=== PATIENT | female | born 1980 | race Caucasian/White ===

== ENCOUNTER 2024-05-16 09:28 | Outpatient (CLI) | payer BC, MEDICAID, SELFPAY ==
--- NOTE | 2024-05-16 09:33 | MM_ITS ---
WS: [id number] BILATERAL 3D TOMOSYNTHESIS DIGITAL DIAGNOSTIC MAMMOGRAPHY WITH CAD CLINICAL INFORMATION: RT BREAST LUMP HISTORY: RIGHT breast lump COMPARISON: Baseline TECHNIQUE: Bilateral CC, MLO, and ML views. FINDINGS: Scattered fibroglandular densities bilaterally. Palpable marker RIGHT breast. No underlying parenchym al abnormalities. Ultrasound of this area is pending. Unremarkable LEFT breast. ULTRASOUND BREAST RIGHT TECHNIQUE: Ultrasound right breast focused area of concern. CLINICAL INFORMATION: RT BREAST LUMP FINDINGS: Ultrasound RIGHT breast area of concern. Ultrasound RIGHT breast 9 o'clock position 5 cm from the nip ple and 3 o'clock position 5 cm from the nipple. Normal underlying parenchymal tissue. No cystic or s olid lesions. No suspicious lesions to target for biopsy. MM/[place] [id number] IMPRESSION: DENSITY: There are scattered areas of fibroglandular density. BI-RADS: 2 - Benign. FOLLOW UP: 1 Year Follow-up Recommend return to annual screening mammography.
== END 2024-05-16 09:29 | disposition home or self-care (01) ==
PROVIDERS: Visit Provider Family Medicine
DX: N63.11 Unspecified lump in the right breast, upper outer quadrant (principal); R92.323 Mammographic fibroglandular density, bilateral breasts
CPT/HCPCS: 76642; 77062; G0279

== ENCOUNTER 2024-07-19 14:32 | Emergency (ER) | payer BC, MEDICAID, SELFPAY ==
--- NOTE | 2024-07-19 14:34 | XR_ITS ---
WS: [id number] Portable AP upright chest, 07/19/2024 Clinical Data: sob Comparison: None. Findings: No masses or effusions are seen. There is a nodule or possible artifact overlying the left seventh rib peripherally. The heart is normal. The pulmonary vascularity is not increased. No pneumon ia or pneumothorax is seen. XR/XR chest 1V portable [id number] Impression: Questionable left lung nodule.
[2024-07-19 15:19] VITALS: BP 151/106; PULSE 90; RESP 21; TEMP 36.8; O2SAT 98; BMI 30.7
--- NOTE | 2024-07-19 16:11 | W.ED.URI ---
HPI - URI/Sore Throat General: Chief Complaint: Upper Respiratory Infection Stated Complaint: SOB, cough, sore throat Time Seen by Provider: 07/19/24 15:47 Source: patient Mode of arrival: ambulatory Limitations: no limitations History of Present Illness: Patient is a 43-year-old female who presents to the ED today stating I think I have bronchitis . Patient is complaining of a nonproductive cough that is keeping her up at night, sore throat, congestion. She has had sick contacts. She has not been running fevers. No significant shortness of breath. Her main complaint is the bothersome cough. MD elicited complaint: cough and sore throat Onset (ago): day(s) Consistency: constant Severity: moderate Description of mucous: clear Able to tolerate fluids by mouth: Yes Exacerbating factors: nothing Relieving factors: nothing Context: sick contacts Associated symptoms: Deny chills, chest pain, diarrhea, ear or mastoid pain, fever(s), headache(s), nasal congestion, sinus pain or vomiting Treatments prior to arrival: none Related Data Previous Rx's Medication Instructions Recorded albuterol sulfate 90 mcg/actuation 2 inh inhalation Q4H PRN shortness 07/19/24 aerosol inhaler of breath or wheezing #6.7 grams prednisone 10 mg tablet 10 mg PO DAILY 6 days #20 tabs 07/19/24 promethazine-DM 6.25 mg-15 mg/5 mL 5 ml PO Q6H PRN cough #100 mL 07/19/24 oral syrup Allergies Allergy/AdvReac Type Severity Reaction Status Date / Time codeine AdvReac ADR-Vomitin Verified 07/19/24 15:23 g hydrocodone AdvReac ADR-Vomitin Verified 07/19/24 15:23 g Review of Systems Const: Denies: fever(s), chills, body aches, fatigue or malaise Eyes: Denies: change in vision, blurry vision, photophobia, eye discomfort or eye discharge ENMT: Reports: throat pain and odynophagia; Denies: enlarged tonsils, swelling of lips/tongue, oral sores, ear or mastoid pain, ear discharge, nasal discharge, nasal congestion, post nasal drip or sinus pain Card: Denies: chest pain, palpitations, lightheadedness, syncope or pre-syncope Resp: Reports: non-productive cough, pain on inspiration and chest congestion; Denies: dyspnea, productive cough, wheezing or hemoptysis GI: Denies: vomiting or diarrhea Musc: Denies: neck pain or back pain Skin/Breast: Denies: rash Neuro: Denies: headache(s) All/Imm: Denies: facial swelling or seasonal rhinorrhea Physical Exam Const: COMMON NORMALS: no acute distress, average body habitus, patient oriented x3, no limitations, alert and well nourished GENERAL APPEARANCE: cooperative ORIENTATION/CONSCIOUSNESS: Yes awake, Yes oriented to person, Yes oriented to place and Yes oriented to time HENMT: COMMON NORMALS: normocephalic, atraumatic, hearing grossly normal bilaterally, external ears normal, EAC's normal, TM's normal bilaterally, Normal external nose present, Normal nasal mucous membranes and turbinates present and moist oral mucous membranes HEAD & SCALP: normal to inspection, normocephalic and atraumatic FACE & SINUS: normal facial exam and sinuses nontender NOSE: Normal external nose present and Normal nasal mucous membranes and turbinates present EXTERNAL EAR: Yes external ears normal EXTERNAL AUDITORY CANAL: EAC's normal TYMPANIC MEMBRANE: TM's normal bilaterally THROAT: tonsils normal, uvula midline and posterior oropharynx abnormal erythema Eye: COMMON NORMALS: Equal, round and reactive pupils present, EOMs intact bilaterally and conjunctivae normal CONJUNCTIVA: Yes conjunctivae normal PUPIL: Yes Equal, round and reactive pupils present Neck/C-Spine: COMMON NORMALS: no lymphadenopathy Resp: COMMON NORMALS: normal respiratory effort and clear to auscultation bilaterally AUSCULTATION: clear to auscultation bilaterally Cardio: COMMON NORMALS: regular rate and regular rhythm RATE: regular rate RHYTHM: regular rhythm Neuro: COMMON NORMALS: patient oriented x3 SENSORIUM/ORIENTATION: Yes alert, Yes oriented to person, Yes oriented to place and Yes oriented to time Course Vital Signs: Vital signs: Vital Signs Temperature 98.2 F 07/19/24 15:19 Pulse Rate 90 07/19/24 15:19 Respiratory Rate 21 H 07/19/24 15:19 Blood Pressure 151/106 07/19/24 15:19 Pulse Oximetry 98 07/19/24 15:19 Oxygen Delivery Me thod Room Air 07/19/24 15:19 MDM - URI/Sore Throat Medical Decision Making XR is unremarkable apart from incidental questionable left lung nodule. She was made aware of this. Her COVID/flu/RSV did come back positive for RSV. She will be treated with albuterol, prednisone, cough syrup as she was requesting something for her cough. Return ED precautions given. Differential Diagnosis Likely upper respiratory infection, croup, viral infection and bronchitis Medical Records I reviewed the patient's medical records. Lab Data I reviewed the patient's lab results. Radiology Impressions Chest X-Ray 07/19/24 14:34 Impression: Questionable left lung nodule. Laboratory Results Coronavirus (PCR) Negative (Negative) 07/19/24 15:30 Influenza A (PCR) Negative (Negative) 07/19/24 15:30 Influenza Type B (PCR) Negative (Negative) 07/19/24 15:30 RSV (PCR) Positive (Negative) 07/19/24 15:30 All radiology interpretation(s) finalized by discharge Discharge Plan Discharge Patient Disposition: Home Clinical Impression: Acute bronchiolitis due to respiratory syncytial virus Condition: Stable Prescriptions: New promethazine-DM 6.25-15 mg/5 mL syrup 5 ml PO Q6H PRN (Reason: cough) Qty: 100 0RF prednisone 10 mg tablet 10 mg PO DAILY 6 Days Qty: 20 0RF Rx Instructions: Take 5 tabs on day 1-2, 4 tabs on day 3, 3 tabs on day 4, 2 tabs on day 5, and 1 tab on day 6 albuterol sulfate 90 mcg/actuation HFA aerosol inhaler 2 inh INHALATION Q4H PRN (Reason: shortness of breath or wheezing) Qty: 6.7 0RF Discharge Orders: Discharge ED (Routine); Ordered 07/19/24 Ordered By: Delmi Sawyer Patient Instructions: Bronchiolitis (ED), RSV (Respiratory Syncytial Virus) Infection (ED), Respiratory Syncytial Virus (RSV) Stand Alone Forms: Work/School Release Coding Level of Care 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
[2024-07-19 16:17] LABS: Covid PCR NEGATIVE (Negative); Influenza A NEGATIVE (Negative); Influenza B NEGATIVE (Negative); Respiratory Syncytial Virus Ce POSITIVE (Negative)
[2024-07-19 16:55] VITALS: BP 157/101; PULSE 92; O2SAT 93
== END 2024-07-19 16:57 | disposition home or self-care (01) ==
PROVIDERS: Emergency Medicine; Emergency Provider Physician Assistant
DX: J20.5 Acute bronchitis due to respiratory syncytial virus (principal); Z11.52 Encounter for screening for COVID-19
CPT/HCPCS: 0241U; 71045; 99283

== ENCOUNTER 2024-07-21 13:29 | Emergency (ER) | payer BC, MEDICAID, SELFPAY ==
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
[2024-07-21 13:39] VITALS: BP 165/104; PULSE 92; RESP 18; TEMP 36.9; O2SAT 97
--- NOTE | 2024-07-21 13:42 | PC.PHAR ---
Addendum entered by Lauren Nicholas 07/21/24 13:44: all meds are still current therapy Original Note: patient was just discharged 2 days ago
--- NOTE | 2024-07-21 13:47 | ECG_ITS ---
[facility] Date: 2024-07-21 Pat Name: Carmita Dalal Department: Room: Gender: Female Specialty Cook: : 1980 Requested By: Steve Waterman Order Number: [id number] Camilla MD: Merle Sow M.D. Measurements Intervals [place] Rate: 91 P: 14 MD: 167 QRS: 7 QRSD: 105 T: 59 QT: 363 QTc: 448 Interpretive Statements SINUS RHYTHM NONSPECIFIC T-WAVE ABNORMALITY No previous ECG available for comparison Electronically Signed On 07-21-2024 20:26:18 MICA LAYER by Merle Sow M.D. [email or web address]
--- NOTE | 2024-07-21 13:48 | ED_ITS ---
HPI - SOB/Dyspnea General: Chief Complaint: Shortness of Breath/Dyspnea Stated Complaint: sob, cough gotten worst Time Seen by Provider: 07/21/24 13:38 Source: patient Mode of arrival: ambulatory Limitations: no limitations History of Present Illness: HPI Narrative: 43-year-old female who states she has lanier d cough congestion since evening patient was seen here on Monday and was diagnosed with RSV she states she did fill her steroids and albuterol yesterday states today her cough is worsened states she has sharp chest and back pains from coughing so much. Denies any vomiting or diarrhea. Associated symptoms: Reports chest pain; Deny abdominal pain, fever(s), nausea or vomiting Related Data Previous Rx's Medication Instructions Recorded albuterol sulfate 90 mcg/actuation 2 inh inhalation Q4H PRN shortness 07/19/24 aerosol inhaler of breath or wheezing #6.7 grams prednisone 10 mg tablet 10 mg PO DAILY 6 days #20 tabs 07/19/24 promethazine-DM 6.25 mg-15 mg/5 mL 5 ml PO Q6H PRN cough #100 mL 07/19/24 oral syrup albuterol sulfate 2.5 mg/3 mL 2.5 mg (3 mL) inhalation Q4H PRN 07/21/24 (0.083 %) solution for nebulization shortness of breath or wheezing #90 mL Allergies Allergy/AdvReac Type Severity Reaction Status Date / Time codeine AdvReac ADR-Vomitin Verified 07/21/24 13:43 g hydrocodone AdvReac ADR-Vomitin Verified 07/21/24 13:43 g Review of Systems Const: Denies: fever(s), chills, body aches or change in appetite ENMT: Denies: throat pain or dental pain Card: Reports: chest pain Resp: Reports: dyspnea and non-productive cough GI: Denies: abdominal pain, nausea, vomiting or diarrhea Musc: Denies: neck pain or back pain Skin/Breast: Denies: rash Neuro: Denies: headache(s) Physical Exam Const: COMMON NORMALS: no acute distress, patient oriented x3 and healthy appearing HENMT: COMMON NORMALS: normocephalic and atraumatic HEAD & SCALP: normocephalic and atraumatic Neck/C-Spine: COMMON NORMALS: full ROM and supple Chest: COMMONS NORMALS: normal inspection of the chest Resp: COMMON NORMALS: normal respiratory effort, No retractions, No use of accessory muscles and clear to auscultation bilaterally AUSCULTATION: clear t o auscultation bilaterally Cardio: COMMON NORMALS: regular rate, regular rhythm and No murmurs present (Cardio) RATE: regular rate RHYTHM: regular rhythm Extremity: COMMON NORMALS: normal to inspection and full ROM Neuro: COMMON NORMALS: patient oriented x3, moves all extremities and no focal motor deficits Psych: COMMON NORMALS: mental status grossly normal, Normal thought process present and cooperative THOUGHT PROCESS: Normal thought process present Skin: COMMON NORMALS: no rashes or lesions noted and no wounds GENERAL SKIN EXAM: no rashes or lesions noted Course Vital Signs: Vital signs: Vital Signs Temperature 98.5 F 07/21/24 13:39 Pulse Rate 100 07/21/24 14:04 Respiratory Rate 18 07/21/24 13:58 Blood Pressure 165/104 07/21/24 13:39 Pulse Oximetry 94 07/21/24 13:58 Oxygen Delivery Me thod Room Air 07/21/24 13:58 MDM - SOB/Dyspnea Medical Decision Making Patient presents here with RSV and give her breathing treatments she is well-ap pearing here pulse ox normal x-ray shows no pneumonia she had found her nebulizer so we will prescribe her nebs she is return if worsening she understands agrees plan Medical Records I reviewed the patient's medical records. XR interpretation done by ED provider, pending radiology final review ED provider radiology interpretation(s): cxr: no acute abnormality EKG Data EKG 1: I personally reviewed and interpreted this EKG as follows: EKG Interpretation Date: 07/21/24 EKG interpretation time: 13:52 Interpretation: nsr hr [address] or t wave abnormalities qrs 105 qtc 412 Discharge Plan Discharge Patient Disposition: Home Clinical Impression: Acute bronchiolitis due to respiratory syncytial virus Condition: Stable Prescriptions: New albuterol sulfate 2.5 mg /3 mL (0.083 %) solution for nebulization 2.5 mg INHALATION Q4H PRN (Reason: shortness of breath or wheezing) Qty: 90 0RF No Action promethazine-DM 6.25-15 mg/5 mL syrup 5 ml PO Q6H PRN (Reason: cough) Qty: 100 0RF prednisone 10 mg tablet 10 mg PO DAILY 6 Days Qty: 20 0RF Rx Instructions: Take 5 tabs on day 1-2, 4 tabs on day 3, 3 tabs on day 4, 2 tabs on day 5, and 1 tab on day 6 albuterol sulfate 90 mcg/actuation HFA aerosol inhaler 2 inh INHALATION Q4H PRN (Reason: shortness of breath or wheezing) Qty: 6.7 0RF Discharge Orders: Discharge ED (Routine); Ordered 07/21/24 Ordered By: Steve Waterman Discharge Diet: Advance as tolerated Discharge Activity: Resume usual activity Patient Instructions: RSV (Respiratory Syncytial Virus) Infection (ED) Coding Level of Care Code ED Pulp Mill Team 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
[2024-07-21] MEDS: ipratropium-albuterol 3 mL Neb INHALATION (13:55)
[2024-07-21 13:58] VITALS: PULSE 88; RESP 18; O2SAT 94
[2024-07-21 14:04] VITALS: PULSE 100
[2024-07-21] MEDS: ketorolac 30 mg/mL INJ IM (14:25)
[2024-07-21 15:22] VITALS: BP 192/106; PULSE 110; RESP 17; O2SAT 92
== END 2024-07-21 15:25 | disposition home or self-care (01) ==
PROVIDERS: Emergency Provider Emergency Medicine
DX: J21.0 Acute bronchiolitis due to respiratory syncytial virus (principal)
CPT/HCPCS: 71045; 93005; 94640; 96372; 99284; J1885

== ENCOUNTER 2024-08-19 13:54 | Outpatient (CLI) | payer BC, MEDICAID, SELFPAY ==
--- NOTE | 2024-08-19 14:00 | XR_ITS ---
WS: [id number] Lumbar spine, AP and lateral views, 08/19/2024 Clinical Data: CHRONIC BACK PAIN Comparison: None. Findings: No compression fractures or subluxation is seen. No disc space narrowing is seen. The transverse proc esses and SI joints are normal. XR/XR lumbar spine 2-3V* [id number] Impression: Negative lumbar spine.
--- NOTE | 2024-08-19 14:00 | XR_ITS ---
WS: [id number] Thoracic spine, 3 views, 08/19/2024 Clinical Data: CHRONIC BACK PAIN Comparison: None. Findings: No compression fractures are seen. The disc heights are normal. The paravertebral regions are normal. XR/XR thoracic spine 3V* [id number] Impression: Negative thoracic spine.
--- NOTE | 2024-08-19 14:00 | CT_ITS ---
WS: [id number] CT chest wo con [id number] HISTORY: LUNG NODULE TECHNIQUE: Axial imaging performed through the thorax. Coronal and sagittal reformats are submitted. All CT scans at [facility] use at least one of these dose optimization techniques: automated exposure control; mA and/or kV adjustment per patient size (includes targeted exams where dose is mat ched to clinical indication); or iterative reconstruction. CONTRAST: None DLP: 594.53 mGy.cm COMPARISON: Chest radiograph 07/21/2024 Lungs and central airway: Well-circumscribed nodule with central calcification in the lingula measure s 11 x 10 mm. No additional suspicious mass or nodule. No pneumonia. No endobronchial lesions. Pleura: Normal. No pleural effusion. Heart and pericardium: Mild cardiomegaly. Mild pericardial thickening anteriorly. Mediastinum and angel: No mediastinum or hilar adenopathy. Vessels: Normal size aortic and pulmonary artery. No coronary artery calcifications. Chest wall and lower neck: No soft tissue masses. Upper abdomen: Visualized liver demonstrates diffuse low-attenuation from hepatic steatosis. No adren al mass. Osseous structures: No destructive process. CT/CT chest wo con [id number] IMPRESSION: 1. Well-circumscribed pulmonary nodule with central calcification at the lingu la measures 11 x 10 mm. 2. No mediastinal or hilar adenopathy. Adenopathy. 3. Hepatic steatosis.
== END 2024-08-19 13:55 | disposition home or self-care (01) ==
LOC: RAD 13:56
PROVIDERS: PCP Family Medicine; Visit Provider Family Medicine
DX: R91.1 Solitary pulmonary nodule (principal); K76.0 Fatty (change of) liver, not elsewhere classified; M54.9 Dorsalgia, unspecified
CPT/HCPCS: 71250; 72072; 72100

== ENCOUNTER 2024-09-05 10:15 | Emergency (ER) | payer BC, MEDICAID, SELFPAY ==
--- NOTE | 2024-09-05 10:23 | ECG_ITS ---
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 [id number]
--- NOTE | 2024-09-05 10:25 | XR_ITS ---
WS: [id number] PORTABLE CHEST HISTORY: dyspnea/cough COMPARISON: 07/21/2024, 07/19/2024, chest CT 08/19/2024 Lungs are well-aerated. Reidentified is a pulmonary nodule in the LEFT lower lung measuring 1.7 cm wi th a central calcification. This nodule was previously described without increase in size. Long-term stability will need to be obtained. No pleural effusion or pneumothorax. Cardiac size: Normal. Mediastinum/Aorta: Normal mediastinum. No osseous abnormality seen. XR/XR chest 1V portable [id number] IMPRESSION: 1. No acute pneumonia. 2. 1.7 cm partially calcified nodule in the lower LEFT lung field which has be en recently described. Probably benign nodule. Recommend follow-up noncontrast chest CT in 6 months.
[2024-09-05 10:26] VITALS: BP 182/125; PULSE 89; RESP 18; TEMP 36.5; O2SAT 96; BMI 29.9
--- NOTE | 2024-09-05 10:42 | ED_ITS ---
HPI - URI/Sore Throat 2 General: Chief Complaint: Upper Respiratory Infection Stated Complaint: sob, cough Time Seen by Provider: 09/05/24 10:22 History of Present Illness: 43-year-old female presents to the [facility] ency room complaining of cough and shortness of breath. She states he has intermittently had cough since mid July when she was diagnosed with RSV. No hemoptysis no chest pain no abdominal pain. She has not noted any fever recently. Associated symptoms: Reports chest pain (From coughing); Deny abdominal pain, chills or fever(s) Related Data Home Medications Medication Instructions Recorded Confirmed duloxetine 60 mg capsule,delayed 60 mg PO DAILY 09/05/24 09/05/24 release gabapentin 800 mg tablet 800 mg PO TID 09/05/24 09/05/24 hydralazine 25 mg tablet 25 mg PO BID 09/05/24 09/05/24 metoprolol succinate 100 mg 100 mg PO DAILY 09/05/24 09/05/24 tablet,extended release 24 hr trazodone 100 mg tablet 100 mg PO DAILY 09/05/24 09/05/24 Previous Rx's Medication Instructions Recorded albuterol sulfate 90 mcg/actuation 2 inh inhalation Q4H PRN shortness 07/19/24 aerosol inhaler of breath or wheezing #6.7 grams promethazine-DM 6.25 mg-15 mg/5 mL 5 ml PO Q6H PRN cough #100 mL 07/19/24 oral syrup albuterol sulfate 2.5 mg/3 mL 2.5 mg (3 mL) inhalation Q4H PRN 07/21/24 (0.083 %) solution for nebulization shortness of breath or wheezing #90 mL fluticasone 100 mcg-salmeterol 50 1 inh inhalation BID #60 ea 09/05/24 mcg/dose blistr powdr for inhalation (Advair Diskus) methylprednisolone 4 mg tablets in See Rx Instructions PO .COMPLEX 09/05/24 a dose pack (Medrol (Parish)) #21 ea Allergies Allergy/AdvReac Type Severity Reaction Status Date / Time codeine AdvReac ADR-Vomitin Verified 07/21/24 13:43 g hydrocodone AdvReac ADR-Vomitin Verified 07/21/24 13:43 g Review of Systems 2 Const: Denies: fever(s) or chills Card: Reports: chest pain (From coughing) Resp: Reports: dyspnea, non-productive cough, wheezing and chest congestion GI: Denies: abdominal pain : Denies: dysuria, urinary frequency or urinary urgency Musc: Denies: neck pain or back pain Skin/Breast: Denies: rash Physical Exam 2 Const: COMMON NORMALS: no acute distress GENERAL APPEARANCE: cooperative and comfortable ORIENTATION/CONSCIOUSNESS: Yes awake, Yes oriented to person, Yes oriented to place and Yes oriented to time HENMT: COMMON NORMALS: normocephalic, atraumatic and hearing grossly normal bilaterally HEAD & SCALP: normocephalic and atraumatic Resp: COMMON NORMALS: normal respiratory effort, No retractions, No use of accessory muscles and clear to auscultation bilaterally AUSCULTATION: clear to auscultation bilaterally Cardio: COMMON NORMALS: regular rate, regular rhythm and No murmurs present (Cardio) RATE: regular rate RHYTHM: regular rhythm GI: COMMON NORMALS: Soft to palpation and No hepatosplenomegaly present A USCULTATION: Yes normoactive bowel sounds PALPATION: Yes Soft to palpation, No Tenderness to palpation present (GI), No Guarding due to palpation present (GI) and Yes No hepatosplenomegaly present Extremity: COMMON NORMALS: normal to inspection, capillary refill normal, no clubbing, cyanosis or edema, no calf tenderness and no pedal edema Neuro: SENSORIUM/ORIENTATION: Yes oriented to person, Yes oriented to place and Yes oriented to time Skin: COMMON NORMALS: no rashes or lesions noted GENERAL SKIN EXAM: no rashes or lesions noted Course 2 Vital Signs: Vital signs: Vital Signs Temperature 97.7 F 09/05/24 10:26 Pulse Rate 93 09/05/24 12:05 Respiratory Rate 18 09/05/24 10:26 Blood Pressure 178/135 09/05/24 12:05 Pulse Oximetry 97 09/05/24 12:05 Oxygen Delivery Me thod Room Air 09/05/24 10:26 MDM - URI/Sore Throat Medical Decision Making Suspect she has a sequela of RSV she may have postinfectious bronchiolitis. Will put her on a steroid taper also start her on Advair use albuterol as needed have her follow-up with her primary care doctor return if she has further problems. Today she had no leukocytosis chest x-ray did not show any acute infiltrates EKG did not show any acute ST changes. Medical Records I reviewed the patient's medical records. Lab Data I reviewed the patient's lab results. 09/05/24 10:47 09/05/24 10:47 Radiology Impressions Chest X-Ray 09/05/24 10:25 IMPRESSION: 1. No acute pneumonia. 2. 1.7 cm partially calcified nodule in the lower LEFT lung field which has been recently described. Probably benign nodule. Recommend follow-up noncontrast chest CT in 6 months. Laboratory Results WBC 7.51 10^3/uL (3.29-11.43) 09/05/24 10:47 RBC 4.75 10^6/uL (3.85-5.65) 09/05/24 10:47 Hgb 13.60 g/dL (11.27-16.99) 09/05/24 10:47 Hct 43.7 % (36-47) 09/05/24 10:47 MCV 92.0 fl (85-98) 09/05/24 10:47 MCH 28.6 pg (27-33) 09/05/24 10:47 MCHC 31.1 g/dL (30-55) 09/05/24 10:47 RDW 13.2 % (12.1-15.1) 09/05/24 10:47 Plt Count 238 10^3/cmm (157-399) 09/05/24 10:47 MPV 10.4 fL (7.4-10.4) 09/05/24 10:47 Neut % (Auto) 71.0 % 09/05/24 10:47 Lymph % (Auto) 22.6 % 09/05/24 10:47 [place] % (Auto) 5.5 % 09/05/24 10:47 Eos % (Auto) 0.1 % 09/05/24 10:47 Baso % (Auto) 0.7 % 09/05/24 10:47 Neut # (Auto) 5.33 10^3/uL (1.8-7.7) 09/05/24 10:47 Lymph # (Auto) 1.7 10^3/uL (0.8-4.8) 09/05/24 10:47 [place] # (Auto) 0.4 10^3/uL (0.2-0.9) 09/05/24 10:47 Eos # (Auto) 0.0 10^3/uL (0.0-0.8) 09/05/24 10:47 Baso # (Auto) 0.1 10^3/uL (0.0-0.1) 09/05/24 10:47 Nucleated RBC % (auto) 0 % 09/05/24 10:47 Nucleated RBCs # 0.0 /100WBC 09/05/24 10:47 Sodium 139 mmol/L (136-145) 09/05/24 10:47 Potassium 3.8 mmol/L (3.5-5.1) 09/05/24 10:47 Chloride 103 mmol/L (98-107) 09/05/24 10:47 Carbon Dioxide 22 mmol/L (22-29) 09/05/24 10:47 Anion Gap 17.8 (5-19) 09/05/24 10:47 BUN 11 mg/dL (6-20) 09/05/24 10:47 Creatinine 0.6 mg/dL (0.5-0.9) 09/05/24 10:47 GFR Calculation 109.1 mL/min (90-130) 09/05/24 10:47 Glucose 96 mg/dL (65-115) 09/05/24 10:47 Calculated Osmolality 287 mOsm/kg (285-295) 09/05/24 10:47 Calcium 9.0 mg/dL (8.5-10.5) 09/05/24 10:47 Total Bilirubin 0.5 mg/dL (0.15-1.2) 09/05/24 10:47 AST 39 U/L (0-32) H 09/05/24 10:47 ALT 57 U/L (0-33) H 09/05/24 10:47 Alkaline Phosphatase 78 U/L (35-105) 09/05/24 10:47 Total Protein 7.3 g/dL (6.6-8.7) 09/05/24 10:47 Albumin 4.0 g/dL (3.5-5.2) 09/05/24 10:47 Globulin 3.3 g/dL (1.3-4.6) 09/05/24 10:47 Coronavirus (PCR) Negative (Negative) 09/05/24 10:31 Influenza A (PCR) Negative (Negative) 09/05/24 10:31 Influenza Type B (PCR) Negative (Negative) 09/05/24 10:31 RSV (PCR) Negative (Negative) 09/05/24 10:31 All radiology interpretation(s) finalized by discharge Discharge Plan Discharge Patient Disposition: Home Clinical Impression: Chronic cough, History of RSV infection Condition: Stable Prescriptions: New methylprednisolone [Medrol (Parish)] 4 mg tablets,dose pack See Rx Instructions .ROUTE .COMPLEX Qty: 21 0RF Rx Instructions: orally per package directions fluticasone propion-salmeterol [Advair Diskus] 100-50 mcg/dose blister with device 1 inh inhalation BID Qty: 60 0RF No Action albuterol sulfate 2.5 mg /3 mL (0.083 %) solution for nebulization 2.5 mg INHALATION Q4H PRN (Reason: shortness of breath or wheezing) Qty: 90 0RF promethazine-DM 6.25-15 mg/5 mL syrup 5 ml PO Q6H PRN (Reason: cough) Qty: 100 0RF albuterol sulfate 90 mcg/actuation HFA aerosol inhaler 2 inh INHALATION Q4H PRN (Reason: shortness of breath or wheezing) Qty: 6.7 0RF metoprolol succinate 100 mg tablet extended release 24 hr 100 mg PO DAILY hydralazine 25 mg tablet 25 mg PO BID gabapentin 800 mg tablet 800 mg PO TID trazodone 100 mg tablet 100 mg PO DAILY duloxetine 60 mg capsule,delayed release(DR/EC) 60 mg PO DAILY Discharge Orders: Discharge ED (Routine); Ordered 09/05/24 Ordered By: Franck Mukherjee Referrals: Reynaldo Cunha MD [Primary Care Provider] - Discharge Diet: Usual diet Discharge Activity: Resume usual activity Patient Instructions: Opioid Safety, Pain Management Activity Restrictions/Additional Instructions: Thank you for choosing [facility] for your healthcare needs today. It is very important that you follow up as instructed or that you return to the Emergency Department should you have concerns or if your condition changes or worsens in any way. You were seen today for persistent cough. Suspect your cough is a remnant of your RSV infection it can Sympt-X take up to 2 months for RSV to completely clear. Will start you on a steroid taper and fluticasone inhaler 1 puff twice daily. If your symptoms persist follow-up with your primary care doctor they can refer you to pulmonology. Your chest x-ray today did not show any acute pneumonias. Coding Level of Care Code ED Limb Driver for Blank Liang
[2024-09-05 10:53] LABS: Basophils # 0.1 10^3/uL (0.0-0.1); Basophils % 0.7 %; Eosinophils % 0.1 %; Hematocrit 43.7 % (36-47); Lymphocytes # 1.7 10^3/uL (0.8-4.8); Lymphocytes % 22.6 %; Mean Corpuscular HGB Conc 31.1 g/dL (30-55); Mean Corpuscular Hemoglobin 28.6 pg (27-33); Mean Platelet Volume 10.4 fL (7.4-10.4); Monocytes # 0.4 10^3/uL (0.2-0.9); Monocytes % 5.5 %; Neutrophils # 5.33 10^3/uL (1.8-7.7); Nucleated Red Blood Cells % 0 %; Platelet Count 238 10^3/cmm (157-399); Red Blood Count 4.75 10^6/uL (3.85-5.65); Red Cell Distribution Width 13.2 % (12.1-15.1); White Blood Count 7.51 10^3/uL (3.29-11.43)
[2024-09-05 11:10] LABS: Alanine Aminotransferase 57 U/L (0-33); Alkaline Phosphatase 78 U/L (35-105); Blood Urea Nitrogen 11 mg/dL (6-20); Carbon Dioxide 22 mmol/L (22-29); Chloride 103 mmol/L (98-107); Creatinine Clr Calc Pharmacy 127.6044; Globulin 3.3 g/dL (1.3-4.6); Glomerular Filtration Rate 109.1 mL/min (90-130); Glucose 96 mg/dL (65-115); Osmolality Calculated 287 mOsm/kg (285-295); Sodium 139 mmol/L (136-145); Total Bilirubin 0.5 mg/dL (0.15-1.2); Total Protein 7.3 g/dL (6.6-8.7)
[2024-09-05 11:11] LABS: Anion Gap 17.8 (5-19); Aspartate Amino Transferase 39 U/L (0-32); Potassium 3.8 mmol/L (3.5-5.1)
[2024-09-05 11:32] LABS: Covid PCR NEGATIVE (Negative); Influenza A NEGATIVE (Negative); Influenza B NEGATIVE (Negative); Respiratory Syncytial Virus Ce NEGATIVE (Negative)
[2024-09-05 12:05] VITALS: BP 178/135; PULSE 93; O2SAT 97
== END 2024-09-05 12:05 | disposition home or self-care (01) ==
PROVIDERS: Emergency Provider Family Medicine; PCP Family Medicine
DX: R05.9 Cough, unspecified (principal); Z11.52 Encounter for screening for COVID-19
CPT/HCPCS: 36415; 71045; 80053; 85025; 87637; 93005; 93010; 99285

== ENCOUNTER 2025-01-23 12:45 | Emergency (ER) | payer BC, MEDICAID, SELFPAY ==
[2025-01-23 12:51] VITALS: BP 207/129; PULSE 105; RESP 19; TEMP 36.7; O2SAT 99; BMI 33.3
--- NOTE | 2025-01-23 13:43 | CT_ITS ---
WS: [email or web address] CT THORACIC SPINE TECHNIQUE: Noncontrast CT of the thoracic spine with coronal and sagittal reformatted images. CLINICAL INFORMATION: fall midline tenderness COMPARISON: None. DLP: 2053.[address] scans at [facility] use at least one of these dose optimization techniques: automated exposure control; mA and/or kV adjustment per patient size (includes targeted exams where dose is matched to clinical indication); or iterative reconstruction. FINDINGS: Mild thoracic curve. No acute compression fractures. No high-grade central canal stenosis. Vertebral body heights and disc space heights are well-maintained. Partially visualized lungs are well aerated. Adrenal glands are normal. Normal GE junction. Fatty liver. CT/CT thoracic spin wo con* [id number] IMPRESSION: No acute traumatic thoracic spine findings.
--- NOTE | 2025-01-23 13:43 | CT_ITS ---
WS: [email or web address] CT HEAD TECHNIQUE: Noncontrast CT of the head obtained from the skullbase to the vertex. 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 DLP: 2053.[address] scans at [facility] use at least one of these dose optimization techniques: automated exposure control; mA and/or kV adjustment per patient size (includes targeted exams where dose is matched to clinical indication); or iterative reconstruction. FINDINGS: No evidence of intracranial hemorrhage or mass effect. Ventricular system and basal cisterns are patent. No extra-axial fluid collections. No evidence of mass or mass effect. Normal melendez-white differentiation. Trace fluid in the sphenoid sinus. Paranasal sinuses are otherwise well aerated. Normal mastoid air cells. CT/CT head wo con* [id number] IMPRESSION: 1. No evidence of intracranial hemorrhage or mass effect. 2. No acute intracranial findings.
--- NOTE | 2025-01-23 13:43 | CT_ITS ---
WS: [email or web address] CT CERVICAL TRAUMA TECHNIQUE: Noncontrast CT of the cervical spine with coronal and sagittal reformatted images. CLINICAL INFORMATION: fall, midline tenderness, pain with movt COMPARISON: DLP: 2053.[address] scans at [facility] use at least one of these dose optimization techniques: automated exposure control; mA and/or kV adjustment per patient size (includes targeted exams where dose is matched to clinical indication); or iterative reconstruction. FINDINGS: Straightening of the normal cervical lordosis. Normal craniocervical junction. Normal C1-C2 articulation. Dens is normal in appearance. Normal occipital condyles. No high-grade spinal canal narrowing. Normal C1 ring. No evidence of acute fracture or dislocation. Straightening with slight reversal the normal cervical lordosis. Mild spondylitic changes. Disc osteophyte complex worse at C5-6 and C6-7. Normal prevertebral soft tissues. Mastoids air cells are well aerated. CT/CT cervical spin wo con* [id number] IMPRESSION: No evidence of acute fracture or dislocation.
--- NOTE | 2025-01-23 14:16 | ED_ITS ---
HPI - Fall General: Chief Complaint: Fall Stated Complaint: fall hit head and left side Time Seen by Provider: 01/23/25 13:01 Source: patient Mode of arrival: ambulatory Limitations: no limitations History of Present Illness: 44yo female presents with family for beba lewisation of head, neck, mid back, and left elbow pain following a trip and fall that occurred today when she was attempting to let her dogs out of the house. She states that she does have increased pain with movements of her neck as well as in the mid back. States that the mid back pain does go across her back, but the majority of the pain is in the spine area. She is able to move her elbow, but does have some discomfort. Patient states that the leash took her legs out from under her causing her to fall on her left side on the concrete. Patient reports she was ambulatory after the event and drove herself to the emergency department. Patient denies loss of consciousness, vomiting, use of blood thinners, previous neck/back surgery, any other concerns at this time. Associated symptoms-after fall: Reports neck pain; Denies abdominal pain or chest pain Related Data Home Medications ?Medication ?Instructions ?Recorded ?Confirmed duloxetine 60 mg capsule,delayed 60 mg PO DAILY 09/05/24 release gabapentin 800 mg tablet 800 mg PO TID 09/05/2409/05 hydralazine 25 mg tablet 25 mg PO BID 09/05/24 metoprolol succinate 100 mg 100 mg PO DAILY 09/05/24 0 09/05/24 tablet,extended release 24 hr trazodone 100 mg tablet 100 mg PO DAILY 09/05/2410/29 Previous Rx's ?Medication ?Instructions ?Recorded albuterol sulfate 90 mcg/actuation 2 inh inhalation Q4 H PRN shortness 07/19/24 aerosol inhaler of breath or wheezing #6.7 g francis promethazine-DM 6.25 mg-15 mg/5 mL 5 ml PO Q6H PRN cou gh #100 mL 07/19/24 oral syrup albuterol sulfate 2.5 mg/3 mL 2.5 mg (3 mL) inhalation Q4H PRN 07/21/24 (0.083 %) solution for nebulization shortness of breat h or wheezing #90 mL fluticasone 100 mcg-salmeterol 50 1 inh inhalation BID #60 ea 09/05/24 mcg/dose blistr powdr for inhalation (Advair Diskus) cyclobenzaprine 10 mg tablet 10 mg PO TID PRN muscle s pasm #20 01/23/25 tabs ketorolac 10 mg tablet 10 mg PO Q6H PRN pain 5 days #20 01/23/25 tabs Allergies Allergy/AdvReac Type Severity Reaction Status Date / Time codeine AdvReac ADR-Vomitin Verified 07/21/24 13:43 g hydrocodone AdvReac ADR-Vomitin Verified 07/21/24 13:43 g Review of Systems Const: Denies: fever(s) or chills Card: Denies: chest pain Resp: Denies: dyspnea GI: Denies: abdominal pain or vomiting Musc: Reports: neck pain, back pain and extremity pain (Left elbow) Mathieu/Lymph: Denies: easy bruising or easy bleeding Physical Exam Const: COMMON NORMALS: no acute distress, patient oriented x3, healthy appearing and alert GENERAL APPEARANCE: cooperative ORIENTATION/CONSCIOUSNESS: Yes awake OTHER: Patient is ambulatory to vertical flow recliner unassisted. She is sitting upright in the recliner in no acute distress. She is able to give history with no difficulty. She is interactive with exam appropriately. Family is at bedside HENMT: COMMON NORMALS: normocephalic, atraumatic and external ears normal HEAD & SCALP: normocephalic and atraumatic; no Porter's sign and no raccoon eyes FACE & SINUS: no abrasion and no ecchymosis EXTERNAL EAR: Yes external ears normal Neck/C-Spine: CERVICAL SPINE: Yes pain with cervical ROM, Yes Cervical spine tenderness diffuse and No step off deformity Chest: CHEST: Yes Symmetrical chest wall rise Resp: COMMON NORMALS: normal respiratory effort EFFORT & INSPECTION: Yes able to speak in complete sentences Back/Pelvis: THORACIC SPINE/UPPER BACK: Yes pain with ROM and Yes thoracic spinal tenderness LUMBAR SPINE/LOWER BACK: No pain with ROM and No lumbar spinal tenderness Extremity: LEFT UPPER EXTREMITY: Yes elbow joint Left elbow: Yes inspection (Abrasion presents), Yes palpation (mild tenderness) and Yes ROM (FROM) Neuro: COMMON NORMALS: patient oriented x3 and moves all extremities SENSORIUM/ORIENTATION: Yes alert Psych: COMMON NORMALS: cooperative Course Vital Signs: Vital signs: Vital Signs Temperature 98.0 F 01/23/25 12:51 Pulse Rate 88 01/23/25 17:41 Respiratory Rate 18 01/23/25 17:41 Blood Pressure 136/75 01/23/25 17:41 Pulse Oximetry 98 01/23/25 17:41 Oxygen Delivery Me thod Room Air 01/23/25 12:51 MDM - Fall Medical Decision Making 44yo female presents with family for evaluation of head, neck, mid back, and left elbow pain following a trip and fall that occurred today when she was attempting to let her dogs out of the house. Patient denies loss of consciousness, vomiting, use of blood thinners, previous neck/back surgery, any other concerns at this time. Patient is nontoxic in appearance. Vital signs are stable. Proceeded with imaging of the head, cervical, and thoracic spine. CT of the head with no acute intracranial findings. CT cervical spine with no acute fracture or dislocation, straightening with slight reversal of the normal cervical lordosis noted with mild spondylitic changes and disc osteophyte complex worse at C5-6 and C6-7. CT thoracic spine with no acute traumatic findings, incidental finding of a fatty liver. Discussed these findings with patient. Patient did receive ketorolac while in the emergency department. 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 Sedation precautions provided for cyclobenzaprine. Recommend avoiding heavy lifting for the next 2 to 3 days, activity as tolerated. Advised to follow-up with primary care, call Monday with an update of symptoms and to discuss a recheck. Return precautions provided. Patient states understanding has no further questions or concerns at this time. Lab Data Radiology Impressions Cervical Spine CT 01/23/25 13:43 IMPRESSION: No evidence of acute fracture or dislocation. Head CT 01/23/25 13:43 IMPRESSION: 1. No evidence of intracranial hemorrhage or mass effect. 2. No acute intracranial findings. Thoracic Spine CT 01/23/25 13:43 IMPRESSION: No acute traumatic thoracic spine findings. All radiology interpretation(s) finalized by discharge Discharge Plan Discharge Patient Disposition: Home Clinical Impression: Fall Qualifiers: Encounter type: initial encounter Qualified Code(s): W19.XXXA - Unspecified fall, initial encounter Cervical myofascial strain Qualifiers: Encounter type: initial encounter Qualified Code(s): S16.1XXA - Strain of muscle, fascia and tendon at neck level, initial encounter Acute thoracic back pain Qualifiers: Back pain laterality: bilateral Qualified Code(s): M54.6 - Pain in thoracic spine Condition: Stable Prescriptions: New cyclobenzaprine 10 mg tablet 10 mg PO TID PRN (Reason: muscle spasm) Qty: 20 0RF ketorolac 10 mg tablet 10 mg PO Q6H PRN (Reason: pain) 5 Days Qty: 20 0RF Discontinued methylprednisolone [Medrol ([place])] 4 mg tablets,dose pack See Rx Instructions .ROUTE .COMPLEX Qty: 21 0RF Rx Instructions: orally per package directions No Action albuterol sulfate 2.5 mg /3 mL (0.083 %) solution for nebulization 2.5 mg INHALATION Q4H PRN (Reason: shortness of breath or wheezing) Qty: 90 0RF promethazine-DM 6.25-15 mg/5 mL syrup 5 ml PO Q6H PRN (Reason: cough) Qty: 100 0RF albuterol sulfate 90 mcg/actuation HFA aerosol inhaler 2 inh INHALATION Q4H PRN (Reason: shortness of breath or wheezing) Qty: 6.7 0RF metoprolol succinate 100 mg tablet extended release 24 hr 100 mg PO DAILY hydralazine 25 mg tablet 25 mg PO BID gabapentin 800 mg tablet 800 mg PO TID trazodone 100 mg tablet 100 mg PO DAILY duloxetine 60 mg capsule,delayed release(DR/EC) 60 mg PO DAILY fluticasone propion-salmeterol [Advair Diskus] 100-50 mcg/dose blister with device 1 inh inhalation BID Qty: 60 0RF Discharge Orders: Discharge ED (Routine); Ordered 01/23/25 Ordered By: Braxton Drew Referrals: Reynaldo Cunha MD [Primary Care Provider, Family Practice] Discharge Diet: Usual diet Discharge Activity: Increase activity as tolerated Patient Instructions: Cervical Strain (ED), Lower Back Exercises (ED), Thoracic Back Strain (ED), Pain Management Activity Restrictions/Additional Instructions: No fracture or acute bony abnormalities noted on the neck or mid back. No acute abnormalities noted on the CT scan of your head Chronic findings of arthritic changes in the lower aspect of your neck. Prescription of cyclobenzaprine has been sent to the pharmacy. This is a muscle relaxer that will help with muscle spasms and with pain. Please do not drive or operate heavy machinery while taking this medication as it may make you sleepy Prescription of ketorolac has been sent to the pharmacy to help with inflammation. Do not take ibuprofen or naproxen while taking this medication Try to avoid heavy lifting for the next 2 to 3 days, activity as tolerated Follow-up with primary care, call Monday with an update of symptoms and to discuss recheck Return to the emergency department if any rapid worsening symptoms, further injury, and as needed Stand Alone Forms: Work/School Release Print Language: Egyptian Coding Level of Care Code ED Register Of Wills for Blank Liang
[2025-01-23 17:41] VITALS: BP 136/75; PULSE 88; RESP 18; O2SAT 98
[2025-01-23] MEDS: ketorolac 60 mg/2 mL INJ IM (17:41)
== END 2025-01-23 17:42 | disposition home or self-care (01) ==
PROVIDERS: Emergency Provider Nurse Practitioner; PCP Family Medicine
DX: S16.1XXA Strain of muscle, fascia and tendon at neck level, initial encounter (principal); M54.6 Pain in thoracic spine; W01.0XXA Fall on same level from slipping, tripping and stumbling without subsequent striking against object, initial encounter; Z79.899 Other long term (current) drug therapy; Z88.5 Allergy status to narcotic agent
CPT/HCPCS: 70450; 72125; 72128; 96372; 99284; J1885

== ENCOUNTER 2025-05-26 14:11 | Emergency (ER) | payer BC, MEDICAID, SELFPAY ==
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
--- NOTE | 2025-05-26 14:13 | XRR_ITS ---
PROCEDURE INFORMATION: Exam: XR Chest Exam date and time: 05/26/2025 2:54 PM Age: 44 years old Clinical indication: Pain; Angina pectoris; Additional info: Chest pain TECHNIQUE: Imaging protocol: Radiologic exam of the chest. Views: 1 view. COMPARISON: 1. CR XR chest 1V portable [id number] 09/05/2024 10:[address] chest wo con [id number] 08/19/2024 2:02 PM 3. CR XR chest 1V portable [id number] 07/19/2024 3:33 PM 4. CR XR chest 1V portable [id number] 07/21/2024 1:47 PM FINDINGS: Lungs: 1.3 cm nodule with central dense calcification within the periphery of the left mid lung is unchanged. No new airspace consolidation. No CHF. Pleural spaces: No large pleural effusion or pneumothorax. Heart/Mediastinum: Mild cardiomegaly. Mediastinal contours are smooth. Bones/joints: Mild degenerative changes are present within the spine. XR/XR chest 1V portable [id number] IMPRESSION: 1. Cardiomegaly. Heart size has slightly increased in size as compared to prior chest x-rays. Mediastinal contours are smooth. 2. Stable appearance of a 1.3 cm nodule within the left mid lung. 3. No new airspace consolidation. No CHF. No pleural effusion or pneumothorax.
[2025-05-26 14:20] VITALS: BP 196/143; PULSE 77; RESP 16; TEMP 37.1; O2SAT 99
--- NOTE | 2025-05-26 14:26 | ECG_ITS ---
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 Measurements Intervals [place] Rate: 70 P: -1 MN: 173 QRS: -46 QRSD: 111 T: 91 QT: 409 QTc: 442 Interpretive Statements SINUS RHYTHM LEFT ANTERIOR FASCICULAR BLOCK [QRS AXIS <= -45, QR IN I, RS IN II] LEFT VENTRICULAR HYPERTROPHY AND ST-T CHANGE [VOLTAGE CRITERIA PLUS ST/T ABNORMALITY] POSSIBLE SEPTAL MYOCARDIAL INFARCTION , OF INDETERMINATE AGE [30 ms Q WAVE IN V1/V2] Compared to ECG 09/05/2024 10:23:33 Left anterior fascicular block now present Myocardial infarct finding now present ST (T wave) deviation still present Electronically Signed On 05-26-2025 20:18:29 CDT by Merle Sow M.D. [email or web address] [id number]
[2025-05-26 14:54] LABS: Hematocrit 42.5 % (36-47); Hemoglobin 13.90 g/dL (11.27-16.99); Mean Corpuscular HGB Conc 32.7 g/dL (30-55); Mean Corpuscular Hemoglobin 28.3 pg (27-33); Mean Corpuscular Volume 86.4 fl (85-98); Nucleated Red Blood Cells % 0 %; Platelet Count 284 10^3/cmm (157-399); Red Blood Count 4.92 10^6/uL (3.85-5.65); White Blood Count 5.42 10^3/uL (3.29-11.43)
[2025-05-26 15:12] LABS: Troponin(5th) Baseline 15 ng/L (0-10)
[2025-05-26 15:14] LABS: Alanine Aminotransferase 46 U/L (0-33); Albumin Level 4.7 g/dL (3.5-5.2); Alkaline Phosphatase 77 U/L (35-105); Anion Gap 15.6 (5-19); Aspartate Amino Transferase 32 U/L (0-32); Blood Urea Nitrogen 21 mg/dL (6-20); Calcium 9.5 mg/dL (8.5-10.5); Carbon Dioxide 25 mmol/L (22-29); Chloride 104 mmol/L (98-107); Creatinine Clr Calc Pharmacy 97.2870; Globulin 2.9 g/dL (1.3-4.6); Glucose 94 mg/dL (65-115); Osmolality Calculated 295 mOsm/kg (285-295); Potassium 3.6 mmol/L (3.5-5.1); Sodium 141 mmol/L (136-145); Total Protein 7.6 g/dL (6.6-8.7)
--- NOTE | 2025-05-26 16:07 | W.ED.CHESTPA ---
HPI - Chest Pain General: Chief Complaint: Chest Pain Stated Complaint: chest heaviness, pain in L arm and leg Time Seen by Provider: 05/26/25 14:42 History of Present Illness: 44-year-old female with a history of hypertension who presents emergency room with chest pain that started last night. She said initially she had a sharp chest pain in her left chest. It went down her arm. It now goes down her left leg. She says she checked her blood pressure last night and it was very elevated. 200/130 or 40. On presentation here her blood pressure is elevated as well. No cough. No altered mental status. No nausea or vomiting. No diaphoresis. No known cardiac history. She says she had been going down on her blood pressure medications because it improved after her divorce. She did take extra hydralazine last night. Related Data Home Medications ?Medication ?Instructions ?Recorded ?Confirmed duloxetine 60 mg capsule,delayed 60 mg PO DAILY 09/05/24 09/05/24 release gabapentin 800 mg tablet 800 mg PO TID 09/05/24 09/05/24 hydralazine 25 mg tablet 25 mg PO BID 09/05/24 09/05/24 metoprolol succinate 100 mg 100 mg PO DAILY 09/05/24 09/05/24 tablet,extended release 24 hr trazodone 100 mg tablet 100 mg PO DAILY 09/05/24 09/05/24 Previous Rx's ?Medication ?Instructions ?Recorded albuterol sulfate 90 mcg/actuation 2 inh inhalation Q4H PRN shortness 07/19/24 aerosol inhaler of breath or wheezing #6.7 grams promethazine-DM 6.25 mg-15 mg/5 mL 5 ml PO Q6H PRN cough #100 mL 07/19/24 oral syrup albuterol sulfate 2.5 mg/3 mL 2.5 mg (3 mL) inhalation Q4H PRN 07/21/24 (0.083 %) solution for nebulization shortness of breath or wheezing #90 mL fluticasone 100 mcg-salmeterol 50 1 inh inhalation BID #60 ea 09/05/24 mcg/dose blistr powdr for inhalation (Advair Diskus) cyclobenzaprine 10 mg tablet 10 mg PO TID PRN muscle spasm #20 01/23/25 tabs Allergies Allergy/AdvReac Type Severity Reaction Status Date / Time codeine AdvReac ADR-Vomitin Verified 07/21/24 13:43 g hydrocodone AdvReac ADR-Vomitin Verified 07/21/24 13:43 g Review of Systems Narrative: Constitutional symptoms: Negative except as documented in HPI. Skin symptoms: Negative except as documented in HPI. Eye symptoms: Negative except as documented in HPI. ENMT symptoms: Negative except as documented in HPI. Respiratory symptoms: Negative except as documented in HPI. Cardiovascular symptoms: Negative except as documented in HPI. Gastrointestinal symptoms: Negative except as documented in HPI. Genitourinary symptoms: Negative except as documented in HPI. Musculoskeletal symptoms: Negative except as documented in HPI. Neurologic symptoms: Negative except as documented in HPI. Psychiatric symptoms: Negative except as documented in HPI. Endocrine symptoms: Negative except as documented in HPI. Physical Exam Narrative: EXAM NARRATIVE: Constitutional symptoms: Negative except as documented in HPI. Skin symptoms: Negative except as documented in HPI. Eye symptoms: Negative except as documented in HPI. ENMT symptoms: Negative except as documented in HPI. Respiratory symptoms: Negative except as documented in HPI. Cardiovascular symptoms: Negative except as documented in HPI. Gastrointestinal symptoms: Negative except as documented in HPI. Genitourinary symptoms: Negative except as documented in HPI. Musculoskeletal symptoms: Negative except as documented in HPI. Neurologic symptoms: Negative except as documented in HPI. Psychiatric symptoms: Negative except as documented in HPI. Endocrine symptoms: Negative except as documented in HPI. Course Vital Signs: Vital signs: Vital Signs Temperature 98.7 F 05/26/25 14:20 Pulse Rate 93 05/26/25 17:15 Respiratory Rate 16 05/26/25 14:20 Blood Pressure 189/109 05/26/25 17:15 Pulse Oximetry 98 05/26/25 17:15 Oxygen Delivery Me thod Room Air 05/26/25 17:15 MDM - Chest Pain Medical Decision Making Differential diagnosis for patient with chest pain includes but is not limited to and based on the above HPI, review of systems and physical exam: Pneumonia. unstable angina. angina. Acute coronary syndrome / [place]. Pulmonary embolism. Costochondritis / musculoskeletal. Pleurisy. Pericarditis. Esophageal spasm. Pancreatis. Cholecystitis. Orders placed to evaluate differential diagnosis based on the above differential, HPI and physical exam EKG: Time 1426. Rate 70. Normal sinus rhythm, nonspecific ST-T changes, no ectopy, normal MS & QRS intervals, This was reviewed and interpreted by myself the ER physician at 1430. This appears fairly similar to an EKG done in September of this year. Repeat EKG: Time 1647. Rate 78. Normal sinus rhythm, No ST-T changes, no ectopy, normal MS & QRS intervals, This was reviewed and interpreted by myself the ER physician. No significant changes from EKG done previously today in the emergency room. Chest x-ray: Cardiomegaly which may be slightly increased in size compared to a previous x-ray. Stable pulmonary nodule. No acute process. No evidence of CHF. This was reviewed and interpreted by myself the emergency room physician. I also reviewed the radiology report. Lab Review: Laboratory results were reviewed and interpreted by myself the emergency room physician. No leukocytosis. No anemia. No renal failure. Initial troponin is above normal at 16.4. Repeat is not significantly different. HEART Pathway for Early Discharge in Acute Chest Pain from [place] on 05/26/2025 All calculations should be rechecked by clinician prior to use RESULT SUMMARY: 5 points HEART Pathway Score High risk 12-65% 30-day MACE Cardiology consultation and admission recommended. Further testing indicated. INPUTS: History ?> 2 = Highly suspicious EKG ?> 1 = Non-specific repolarization disturbance Age ?> 0 = <45 Risk factors ?> 1 = 1-2 risk factors Initial troponin ?> 1 = 1-3x normal limit I reviewed the patient's medical record. Patient's only records are from previous ER visits. She has had a couple of visits for chronic cough and a visit for a fall in the past. Reexamination: Patient develops more chest pain so nitro was given. Blood pressure has not responded significantly to IV hydralazine or nitroglycerin. Labetalol being given. She did become a bit tearful after I told her she was being admitted. Consultation: I spoke Dr. German who is on-call for the hospitalist service who agrees to admission to observation. Assessment and plan: Chest pain Malignant hypertension ?IV hydralazine, nitroglycerin, IV labetalol all given in the emergency room -I discussed the patient with the hospitalist on-call who is admitting the patient. - Discussed findings and plan with patient. Answered any questions. - All laboratory values were reviewed and interpreted personally by myself, the ER physician - All imaging was reviewed and interpreted personally by myself, the ER physician. - Evaluation and treatment of this problem were appropriate in the emergency setting Lab Data 05/26/25 14:37 05/26/25 14:37 Radiology Impressions Chest X-Ray 05/26/25 14:13 IMPRESSION: 1. Cardiomegaly. Heart size has slightly increased in size as compared to prior chest x-rays. Mediastinal contours are smooth. 2. Stable appearance of a 1.3 cm nodule within the left mid lung. 3. No new airspace consolidation. No CHF. No pleural effusion or pneumothorax. Laboratory Results WBC 5.42 10^3/uL (3.29-11.43) 05/26/25 14:37 RBC 4.92 10^6/uL (3.85-5.65) 05/26/25 14:37 Hgb 13.90 g/dL (11.27-16.99) 05/26/25 14:37 Hct 42.5 % (36-47) 05/26/25 14:37 MCV 86.4 fl (85-98) 05/26/25 14:37 MCH 28.3 pg (27-33) 05/26/25 14:37 MCHC 32.7 g/dL (30-55) 05/26/25 14:37 RDW 13.2 % (12.1-15.1) 05/26/25 14:37 Plt Count 284 10^3/cmm (157-399) 05/26/25 14:37 MPV 10.7 fL (7.4-10.4) H 05/26/25 14:37 Neut % (Auto) 59.7 % 05/26/25 14:37 Lymph % (Auto) 35.1 % 05/26/25 14:37 [place] % (Auto) 3.9 % 05/26/25 14:37 Eos % (Auto) 0.0 % 05/26/25 14:37 Baso % (Auto) 1.1 % 05/26/25 14:37 Neut # (Auto) 3.24 10^3/uL (1.8-7.7) 05/26/25 14:37 Lymph # (Auto) 1.9 10^3/uL (0.8-4.8) 05/26/25 14:37 [place] # (Auto) 0.2 10^3/uL (0.2-0.9) 05/26/25 14:37 Eos # (Auto) 0.0 10^3/uL (0.0-0.8) 05/26/25 14:37 Baso # (Auto) 0.1 10^3/uL (0.0-0.1) 05/26/25 14:37 Nucleated RBC % (auto) 0 % 05/26/25 14:37 Nucleated RBCs # 0.0 /100WBC 05/26/25 14:37 Sodium 141 mmol/L (136-145) 05/26/25 14:37 Potassium 3.6 mmol/L (3.5-5.1) 05/26/25 14:37 Chloride 104 mmol/L (98-107) 05/26/25 14:37 Carbon Dioxide 25 mmol/L (22-29) 05/26/25 14:37 Anion Gap 15.6 (5-19) 05/26/25 14:37 BUN 21 mg/dL (6-20) H 05/26/25 14:37 Creatinine 0.8 mg/dL (0.5-0.9) 05/26/25 14:37 GFR Calculation 77.9 mL/min (90-130) L 05/26/25 14:37 Glucose 94 mg/dL (65-115) 05/26/25 14:37 Calculated Osmolality 295 mOsm/kg (285-295) 05/26/25 14:37 Calcium 9.5 mg/dL (8.5-10.5) 05/26/25 14:37 Total Bilirubin 0.5 mg/dL (0.15-1.2) 05/26/25 14:37 AST 32 U/L (0-32) 05/26/25 14:37 ALT 46 U/L (0-33) H 05/26/25 14:37 Alkaline Phosphatase 77 U/L (35-105) 05/26/25 14:37 Troponin T Baseline 15 ng/L (0-10) H 05/26/25 14:37 Troponin T 120 Minute 16.40 ng/L (0-10) H 05/26/25 16:17 Delta Troponin T 1.40 ABS# (0-10) 05/26/25 16:17 Total Protein 7.6 g/dL (6.6-8.7) 05/26/25 14:37 Albumin 4.7 g/dL (3.5-5.2) 05/26/25 14:37 Globulin 2.9 g/dL (1.3-4.6) 05/26/25 14:37 All radiology interpretation(s) finalized by discharge Discharge Plan Discharge Patient Disposition: Admitted As Inpatient Admit Provider: Leonard German Clinical Impression: Chest pain, Accelerated hypertension Condition: Stable Coding Level of Care Code ED Respiratory Support Technician for Blank Liang
--- NOTE | 2025-05-26 16:13 | ECG_ITS ---
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 Measurements Intervals [place] Rate: 78 P: 17 ND: 177 QRS: -41 QRSD: 113 T: 135 QT: 419 QTc: 479 Interpretive Statements SINUS RHYTHM LEFT AXIS DEVIATION [QRS AXIS < -30] PATTERN CONSISTENT WITH PULMONARY DISEASE LEFT VENTRICULAR HYPERTROPHY AND ST-T CHANGE [VOLTAGE CRITERIA PLUS ST/T ABNORMALITY] POSSIBLE SEPTAL MYOCARDIAL INFARCTION , OF INDETERMINATE AGE [30 ms Q WAVE IN V1/V2] Compared to ECG 05/26/2025 14:26:38 Left-axis deviation now present Left anterior fascicular block no longer present ST (T wave) deviation still present Myocardial infarct finding still present Electronically Signed On 05-26-2025 20:26:21 CDT by Merle Sow M.D. [email or web address] [id number]
[2025-05-26] MEDS: hyDRALAzine 20 mg/mL INJ 1 mL IVP (16:19)
[2025-05-26 16:47] VITALS: BP 180/108; PULSE 90; O2SAT 99
--- NOTE | 2025-05-26 16:48 | PC.NURSE ---
PT COMPLAINING OF CONTINUING CHEST TIGHTNESS. PT HYPERTENSIVE DURING REASSESSMENT. DR. WALKER NOTIFIED, NITRO ORDERED BY PHYSICIAN.
[2025-05-26 16:50] LABS: Troponin 5 2HR 16.40 ng/L (0-10); Troponin 5 2HR Delta 1.40 ABS# (0-10)
[2025-05-26 17:15] VITALS: BP 189/109; PULSE 93; O2SAT 98
[2025-05-26] MEDS: labetalol 5 mg/mL SDV 20mL 20 MG IVP (17:15)
--- NOTE | 2025-05-26 17:56 | PM.CONSULT ---
Providers/Reason For Consult Consulting Physician/Specialty*: Leonard German MD hospitalist Reason for Consult*: Accelerated hypertension Requesting Physician: Caro Joya MD Attending Physician: Leonard German MD Primary Care Provider: Reynaldo Cunha MD History of Present Illness History of Present Illness Carmita Dalal is a 44 year old female with long history of hypertension treated with metoprolol 100 mg p.o. daily she states for the last few months and hydralazine 25 mg twice a day. She had chest pain yesterday radiating to the left arm and left leg. took extra hydralazine last night without effect. Patient states she was on more blood pressure medications in the past but those were weaned off by Dr. Cunha when blood pressure improved following the divorce. She and her ex- are coparent well and are still good friends but did not work out well as very couple. EKG sinus rhythm poor septal R wave progression no acute ST-T wave abnormality. Compared to September 05, 2024 septal R wave progression similar but in V5 V6 R wave progression has decreased. EKG shows LVH by amplitude and aVL. I do not see any echocardiograms. Patient's cardiac enzyme this visit troponin baseline 15 and at 120 minutes 16.4. Patient denies chest pain at this time states that has resolved. Chest x-ray shows LV enlargement. This is compared to September 05, 2024. Blood pressures have run high chronically as seen here in the emergency department 151/106 on July 19, 2024 192/106 on 07/21/2024, 182/125 heart rate 89 on 09/05/2024, 207/129 heart rate 105 on 01/23/2025 and today 196/143 heart rate 77. Past surgical history patient had a SHONDA/BSO both ovaries removed she was briefly on estrogen but states it was not stopping her hot flashes. We talked about this with her daughter and they stopped Review of Systems Narrative: General No fevers chills weight gain weight loss. She states she is trying to lose weight Cardiovascular positive for chest pain left side radiating down since last night the left arm now resolved. 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 She is told by her children that she snores but they have never said that she stops breathing. Medications/Allergies Home Medications ?Medication ?Instructions ?Recorded ?Confirmed ?Last Taken ?Type albuterol sulfate 90 mcg/actuation 2 inh inhalation Q4H PRN shortness 07/19/24 09/05/24 07/21/24 Rx aerosol inhaler of breath or wheezing #6.7 grams promethazine-DM 6.25 mg-15 mg/5 mL 5 ml PO Q6H PRN cough #100 mL 07/19/24 09/05/24 07/21/24 Rx oral syrup albuterol sulfate 2.5 mg/3 mL 2.5 mg (3 mL) inhalation Q4H PRN 07/21/24 09/05/24 Unknown Rx (0.083 %) solution for nebulization shortness of breath or wheezing #90 mL duloxetine 60 mg capsule,delayed 60 mg PO DAILY 09/05/24 09/05/24 Unknown History release fluticasone 100 mcg-salmeterol 50 1 inh inhalation BID #60 ea 09/05/24 Unknown Rx mcg/dose blistr powdr for inhalation (Advair Diskus) gabapentin 800 mg tablet 800 mg PO TID 09/05/24 09/05/24 Unknown History hydralazine 25 mg tablet 25 mg PO BID 09/05/24 09/05/24 Unknown History metoprolol succinate 100 mg 100 mg PO DAILY 09/05/24 09/05/24 Unknown History tablet,extended release 24 hr trazodone 100 mg tablet 100 mg PO DAILY 09/05/24 09/05/24 Unknown History cyclobenzaprine 10 mg tablet 10 mg PO TID PRN muscle spasm #20 01/23/25 Unknown Rx tabs Allergies Allergy/AdvReac Type Severity Reaction Status Date / Time codeine AdvReac ADR-Vomitin Verified 07/21/24 13:43 g hydrocodone AdvReac ADR-Vomitin Verified 07/21/24 13:43 g PFSH Acute PFSH: Medical History (Updated 05/26/25 @ 18:13 by Leonard German MD) Sleep apnea-like behavior Menopause Social History (Updated 05/26/25 @ 18:11 by Leonard German MD) Smoking and tobacco/nicotine status: former use of tobacco/nicotine Quit status (tobacco/nicotine): has quit using Year quit tobacco: 2010 Former quit date comment: Now vapes but weaned down to 1-2 hits a day Alcohol intake: former Year of sobriety/quit date alcohol: 2016 Former alcohol use details: Never heavy just socially Substance/Drug Use: former Date of last use: 2023 Former substance use details: Used weed for 6 months for fibromyalgia but stopped due to working in [employer] Additional social history: Patient was full CODE STATUS as discussed with Leonard German MD on 05/26/2025 Marital status: Marital status details: From Ronny Dalal Vitals/I&O/Wt Last Vital Signs Temp 98.7 F 05/26/25 14:20 Pulse 93 05/26/25 17:15 Resp 16 05/26/25 14:20 BP 189/109 05/26/25 17:15 Pulse Ox 98 05/26/25 17:15 O2 Del Method Room Air 05/26/25 17:15 Weight last 48 hrs Weight 86.183 kg Physical Exam Narrative: General well-developed well-nourished overweight female anxious tearful CV regular rate and rhythm no loud murmurs Lungs clear to auscultation bilaterally Neck no bruits Abdomen positive bowel tones soft nontender Calves no tenderness cords pretibial edema Radial pulses 2+ bilateral radial Mood and affect anxious but cooperative she states her sister is driving up to visit anxious because patient had reported chest pain Data 05/26/25 14:37 05/26/25 14:37 A&P Assessment and plan 1. Accelerated hypertension: Patient's blood pressure was under treated and she runs high all the time. Looks like she has LVH from this as well. This could be in part due to her sleep apnea symptoms but for step is to treat the blood pressure more aggressively. She has received enalapril 0.65 mg IV, Trandate 20 mg IVP, nitroglycerin sublingual and hydralazine 20 mg IV. Blood pressure last checked was 160/105 am going to start her on losartan 25 mg now and prescribed 50 mg daily renal function is good Blood pressure improved to 150/101 and then 167/98. 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 Patient can be discharged at this time 2. Chest pain: Cardiac enzymes 15 and 16. I think this is due to severe hypertension and demand ischemia. The patient will be referred to Dr. Das for follow-up of hypertensive heart disease echocardiogram and further treatment of her hypertension 3. LVH (left ventricular hypertrophy) due to hypertensive disease: As above 4. Sleep apnea-like behavior: I have recommended the patient be tested for sleep apnea and treated if present this may help her anxiety, chronic pain and blood pressure PDMP PDMP Reviewed: Not Reviewed Coding Level of Care Code 22944 Diagnoses Accelerated hypertension I10 Chest pain R07.9 LVH (left ventricular hypertrophy) due to hypertensive disease I11.9 Sleep apnea-like behavior G47.39 Time Spent (min) 60
[2025-05-26 18:01] VITALS: BP 160/105; PULSE 89; O2SAT 98
[2025-05-26 19:06] VITALS: BP 122/85; PULSE 79; O2SAT 99
== END 2025-05-26 19:10 | disposition home or self-care (01) ==
LOC: ER 17:13 → CSU 17:17 → ER 18:47
PROVIDERS: Physician Assistant; Emergency Provider Emergency Medicine; PCP Family Medicine
DX: R07.9 Chest pain, unspecified (principal); I10 Essential (primary) hypertension; I51.7 Cardiomegaly
CPT/HCPCS: 36415; 71045; 80053; 84484; 85025; 93005; 96374; 96375; 99285; J0360; J3490; J9999

== ENCOUNTER 2025-06-03 10:55 | Emergency (ER) | payer BC, MEDICAID, SELFPAY ==
--- NOTE | 2025-06-03 10:59 | XR_ITS ---
WS: [id number] XR chest 1V portable [id number] REASON FOR EXAM: Chest pain FINDINGS: Chest is unchanged compared to previous examination of 05/26/2025. Moderate tortuosity and ectasia of the thoracic aorta. Mild cardiomegaly. Calcified granulomatous disease bilaterally. Homogeneously calcified nodule (presumed granuloma) with central focal denser calcification in the periphery of the left lower lung field. This nodule is unchanged compared to 07/19/2024. No acute pulmonary parenchymal or pleural abnormality is identified. XR/XR chest 1V portable [id number] IMPRESSION: Stable chest without acute abnormality.
--- NOTE | 2025-06-03 10:59 | ECG_ITS ---
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 Measurements Intervals [place] Rate: 68 P: -8 ME: 158 QRS: -17 QRSD: 111 T: 127 QT: 422 QTc: 451 Interpretive Statements SINUS RHYTHM LEFT VENTRICULAR HYPERTROPHY AND ST-T CHANGE [VOLTAGE CRITERIA PLUS ST/T ABNORMALITY] POSSIBLE SEPTAL MYOCARDIAL INFARCTION , OF INDETERMINATE AGE [30 ms Q WAVE IN V1/V2] Compared to ECG 05/26/2025 16:47:16 Left-axis deviation no longer present ST (T wave) deviation still present Myocardial infarct finding still present Electronically Signed On 06-05-2025 08:40:40 CDT by Carlyle Castro M.D. [email or web address] [id number]
[2025-06-03 11:04] VITALS: BP 114/89; PULSE 62; RESP 16; TEMP 36.6; O2SAT 96; BMI 30.7
--- NOTE | 2025-06-03 11:34 | ED_ITS ---
HPI - Chest Pain 2 General: Chief Complaint: Chest Pain Stated Complaint: cp, sob, R side pain Time Seen by Provider: 06/03/25 11:27 History of Present Illness: 44-year-old female presents emergency ro om with a complaint of chest pain shortness of breath right side pain. She reports her pain is resolved and she feels like she is ready to go home. She denies anything exacerbated or relieved her pain. She has no history of coronary artery disease no recent fever sweats chills or productive cough. Associated symptoms: Deny abdominal pain, dyspnea or fever(s) Related Data Home Medications ?Medication ?Instructions ?Recorded ?Confirmed duloxetine 60 mg capsule,delayed 60 mg PO DAILY 06/03/25 release gabapentin 800 mg tablet 800 mg PO TID 09/05/2406/03 hydralazine 25 mg tablet 25 mg PO BID 09/05/24 fluticasone 100 mcg-salmeterol 50 1 inh inhalation BID PRN Shortness 06/03/25 06/03/25 mcg/dose blistr powdr for Of Breath inhalation (Advair Diskus) trazodone 150 mg tablet 150 mg PO BEDTIME 06/03/25 0 06/03/25 Previous Rx's ?Medication ?Instructions ?Recorded cyclobenzaprine 10 mg tablet 10 mg PO TID PRN muscle s pasm #20 01/23/25 tabs losartan 50 mg tablet 50 mg PO DAILY #30 tabs 05/06 10/29 metoprolol succinate 100 mg 150 mg (1.5 x 100 mg) PO D AILY #45 05/26/25 tablet,extended release 24 hr tabs nitroglycerin 0.4 mg sublingual 0.4 mg sublingual Q5M PRN chest 05/26/25 tablet pain #20 tabs Allergies Allergy/AdvReac Type Severity Reaction Status Date / Time codeine AdvReac ADR-Vomitin Verified 07/21/24 13:43 g hydrocodone AdvReac ADR-Vomitin Verified 07/21/24 13:43 g Review of Systems 2 Const: Denies: fever(s) or chills Card: Reports: chest pain Resp: Denies: dyspnea GI: Denies: abdominal pain : Denies: dysuria, urinary frequency or urinary urgency Musc: Denies: neck pain or back pain Skin/Breast: Denies: rash PFSH ED 2 PFSH: Medical History Sleep apnea-like behavior Menopause Social History Smoking and tobacco/nicotine status: former use of tobacco/nicotine Quit status (tobacco/nicotine): has quit using Year quit tobacco: 2010 Former quit date comment: Now vapes but weaned down to 1-2 hits a day Alcohol intake: former Year of sobriety/quit date alcohol: 2016 Former alcohol use details: Never heavy just socially Substance/Drug Use: former Date of last use: 2023 Former substance use details: Used weed for 6 months for fibromyalgia but stopped due to working in [employer] Additional social history: Patient was full CODE STATUS as discussed with Leonard German MD on 05/26/2025 Marital status: Marital status details: From Ronny Dalal Physical Exam 2 Const: COMMON NORMALS: no acute distress GENERAL APPEARANCE: cooperative and comfortable ORIENTATION/CONSCIOUSNESS: Yes awake, Yes oriented to person, Yes oriented to place and Yes oriented to time HENMT: COMMON NORMALS: normocephalic, atraumatic and hearing grossly normal bilaterally HEAD & SCALP: normocephalic and atraumatic Resp: COMMON NORMALS: normal respiratory effort, No retractions, No use of accessory muscles and clear to auscultation bilaterally AUSCULTATION: clear to auscultation bilaterally Cardio: COMMON NORMALS: regular rate, regular rhythm and No murmurs present (Cardio) RATE: regular rate RHYTHM: regular rhythm GI: COMMON NORMALS: Soft to palpation and No hepatosplenomegaly present A USCULTATION: Yes normoactive bowel sounds PALPATION: Yes Soft to palpation, No Tenderness to palpation present (GI), No Guarding due to palpation present (GI) and Yes No hepatosplenomegaly present Extremity: COMMON NORMALS: normal to inspection, capillary refill normal, no clubbing, cyanosis or edema, no calf tenderness and no pedal edema Neuro: SENSORIUM/ORIENTATION: Yes oriented to person, Yes oriented to place and Yes oriented to time Skin: COMMON NORMALS: no rashes or lesions noted GENERAL SKIN EXAM: no rashes or lesions noted Course 2 Vital Signs: Vital signs: Vital Signs Temperature 97.9 F 06/03/25 11:04 Pulse Rate 77 06/03/25 14:13 Respiratory Rate 16 06/03/25 11:04 Blood Pressure 181/107 06/03/25 14:13 Pulse Oximetry 98 06/03/25 14:13 Oxygen Delivery Me thod Room Air 06/03/25 11:04 MDM - Chest Pain Medical Decision Making EKGs labs reviewed as found in the chart. Nonspecific changes on EKG however troponin is trending negative patient has no symptoms at this time she is wishing to go home. Will discharge patient home blood pressure elevated she did not take and her hydralazine should take as soon as she arrives at home. Follow-up with your primary care doctor manage blood pressure. She also wishes to follow-up with primary care regarding any further testing. Return if she has further symptoms. Medical Records I reviewed the patient's medical records. Lab Data I reviewed the patient's lab results. 06/03/25 11:14 06/03/25 11:14 Radiology Impressions Chest X-Ray 06/03/25 10:59 IMPRESSION: Stable chest without acute abnormality. Laboratory Results WBC 5.20 10^3/uL (3.29-11.43) 06/03/25 11:14 RBC 4.77 10^6/uL (3.85-5.65) 06/03/25 11:14 Hgb 13.70 g/dL (11.27-16.99) 06/03/25 11:14 Hct 42.3 % (36-47) 06/03/25 11:14 MCV 88.7 fl (85-98) 06/03/25 11:14 MCH 28.7 pg (27-33) 06/03/25 11:14 MCHC 32.4 g/dL (30-55) 06/03/25 11:14 RDW 13.2 % (12.1-15.1) 06/03/25 11:14 Plt Count 289 10^3/cmm (157-399) 06/03/25 11:14 MPV 10.5 fL (7.4-10.4) H 06/03/25 11:14 Neut % (Auto) 65.0 % 06/03/25 11:14 Lymph % (Auto) 29.2 % 06/03/25 11:14 Dawson % (Auto) 5.4 % 06/03/25 11:14 Eos % (Auto) 0.0 % 06/03/25 11:14 Baso % (Auto) 0.2 % 06/03/25 11:14 Neut # (Auto) 3.38 10^3/uL (1.8-7.7) 06/03/25 11:14 Lymph # (Auto) 1.5 10^3/uL (0.8-4.8) 06/03/25 11:14 Dawson # (Auto) 0.3 10^3/uL (0.2-0.9) 06/03/25 11:14 Eos # (Auto) 0.0 10^3/uL (0.0-0.8) 06/03/25 11:14 Baso # (Auto) 0.0 10^3/uL (0.0-0.1) 06/03/25 11:14 Nucleated RBC % (auto) 0 % 06/03/25 11:14 Nucleated RBCs # 0.0 /100WBC 06/03/25 11:14 Sodium 142 mmol/L (136-145) 06/03/25 11:14 Potassium 3.9 mmol/L (3.5-5.1) 06/03/25 11:14 Chloride 105 mmol/L (98-107) 06/03/25 11:14 Carbon Dioxide 24 mmol/L (22-29) 06/03/25 11:14 Anion Gap 16.9 (5-19) 06/03/25 11:14 BUN 25 mg/dL (6-20) H 06/03/25 11:14 Creatinine 0.8 mg/dL (0.5-0.9) 06/03/25 11:14 GFR Calculation 77.9 mL/min (90-130) L 06/03/25 11:14 Glucose 106 mg/dL (65-115) 06/03/25 11:14 Calculated Osmolality 299 mOsm/kg (285-295) H 06/03/25 11:14 Calcium 9.8 mg/dL (8.5-10.5) 06/03/25 11:14 Total Bilirubin 0.5 mg/dL (0.15-1.2) 06/03/25 11:14 AST 28 U/L (0-32) 06/03/25 11:14 ALT 50 U/L (0-33) H 06/03/25 11:14 Alkaline Phosphatase 77 U/L (35-105) 06/03/25 11:14 Troponin T Baseline 16 ng/L (0-10) H 06/03/25 11:14 Troponin T 120 Minute 14.44 ng/L (0-10) H 06/03/25 13:14 Delta Troponin T -1.56 ABS# (0-10) L 06/03/25 13:14 NT-Pro-B Natriuret Pep 286 pg/mL (0-125) H 06/03/25 11:14 Total Protein 7.6 g/dL (6.6-8.7) 06/03/25 11:14 Albumin 4.7 g/dL (3.5-5.2) 06/03/25 11:14 Globulin 2.9 g/dL (1.3-4.6) 06/03/25 11:14 All radiology interpretation(s) finalized by discharge EKG Data EKG 1: Interpretation: EKG 06/03/2025 11:01 AM sinus rhythm rate of 60 CA interval 158 QTc 451. Compared to EKG 05/26/2025. No acute ST changes noted no significant variation from previous. EKG 2: Interpretation: EKG 06/03/2025 1250 sinus bradycardia rate of 57 parable [address] changes. No acute ST elevation Discharge Plan Discharge Patient Disposition: Home Clinical Impression: Atypical chest pain, HTN (hypertension) Condition: Stable Prescriptions: No Action cyclobenzaprine 10 mg tablet 10 mg PO TID PRN (Reason: muscle spasm) Qty: 20 0RF losartan 50 mg tablet 50 mg PO DAILY Qty: 30 0RF nitroglycerin 0.4 mg tablet, sublingual 0.4 mg sublingual Q5M PRN (Reason: chest pain) Qty: 20 0RF Rx Instructions: do not exceed 3 doses per episode metoprolol succinate 100 mg tablet extended release 24 hr 150 mg PO DAILY Qty: 45 0RF trazodone 150 mg tablet 150 mg PO BEDTIME fluticasone propion-salmeterol [Advair Diskus] 100-50 mcg/dose blister with device 1 inh inhalation BID PRN (Reason: Shortness Of Breath) hydralazine 25 mg tablet 25 mg PO BID gabapentin 800 mg tablet 800 mg PO TID duloxetine 60 mg capsule,delayed release(DR/EC) 60 mg PO DAILY Discharge Orders: Discharge ED (Routine); Ordered 06/03/25 Ordered By: Franck Mukherjee Referrals: Reynaldo Cuhna MD [Primary Care Provider, [facility]] Discharge Diet: Usual diet Discharge Activity: Increase activity as tolerated Patient Instructions: Opioid Safety, Pain Management, Patient Portal & Angelia Instructions Activity Restrictions/Additional Instructions: Thank you for choosing [facility] for your healthcare needs today. It is very important that you follow up as instructed or that you return to the Emergency Department should you have concerns or if your condition changes or worsens in any way. Emergency department visits are focused on emergent conditions, in some cases you may require further evaluation on an outpatient basis. You were seen in the emergency room with complaints of chest discomfort that you describe began after your argument with your previous cardiac workup was negative workup for your heart including heart enzymes and EKG was negative today as well. You reported some headache and flank pain reported those had resolved. Your blood pressure was not normal when you first came in slightly elevated near the end of your visit. Your medicine list includes hydralazine that you take 25 mg twice a day. You should take the dose of hydralazine as soon as you get home follow-up with your primary care doctor regarding management of your blood pressure. (Please note that included in your discharge packet is information concerning opioid safety and pain management. 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
[2025-06-03 11:35] LABS: Hematocrit 42.3 % (36-47); Hemoglobin 13.70 g/dL (11.27-16.99); Mean Corpuscular HGB Conc 32.4 g/dL (30-55); Mean Corpuscular Hemoglobin 28.7 pg (27-33); Mean Corpuscular Volume 88.7 fl (85-98); Nucleated Red Blood Cells % 0 %; Platelet Count 289 10^3/cmm (157-399); Red Blood Count 4.77 10^6/uL (3.85-5.65); White Blood Count 5.20 10^3/uL (3.29-11.43)
[2025-06-03 12:00] LABS: Troponin(5th) Baseline 16 ng/L (0-10)
[2025-06-03 12:07] LABS: Alanine Aminotransferase 50 U/L (0-33); Albumin Level 4.7 g/dL (3.5-5.2); Alkaline Phosphatase 77 U/L (35-105); Anion Gap 16.9 (5-19); Aspartate Amino Transferase 28 U/L (0-32); Blood Urea Nitrogen 25 mg/dL (6-20); Calcium 9.8 mg/dL (8.5-10.5); Carbon Dioxide 24 mmol/L (22-29); Chloride 105 mmol/L (98-107); Creatinine Clr Calc Pharmacy 96.0018; Globulin 2.9 g/dL (1.3-4.6); Glucose 106 mg/dL (65-115); NT Pro B Type Natriuretic Pept 286 pg/mL (0-125); Osmolality Calculated 299 mOsm/kg (285-295); Potassium 3.9 mmol/L (3.5-5.1); Sodium 142 mmol/L (136-145); Total Protein 7.6 g/dL (6.6-8.7)
[2025-06-03] MEDS: LORazepam 1 MG/0.5 ML injection 2 MG IVP (12:25)
--- NOTE | 2025-06-03 12:50 | ECG_ITS ---
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 Measurements Intervals [place] Rate: 57 P: 4 MA: 180 QRS: 0 QRSD: 121 T: 263 QT: 467 QTc: 456 Interpretive Statements SINUS BRADYCARDIA WITH SINUS ARRHYTHMIA SEPTAL MYOCARDIAL INFARCTION , OF INDETERMINATE AGE [40+ ms Q WAVE IN V1/V2] MODERATE T-WAVE ABNORMALITY, CONSIDER ANTEROLATERAL ISCHEMIA [-0.1+ mV T-WAVE IN V3-V6] MODERATE T-WAVE ABNORMALITY, CONSIDER INFERIOR ISCHEMIA [-0.1+ mV T-WAVE IN II/aVF] Compared to ECG 06/03/2025 11:01:53 T-wave abnormality now present Possible ischemia now present Sinus rhythm no longer present Myocardial infarct finding still present Electronically Signed On 06-05-2025 09:01:20 CDT by Carlyle Castro M.D. [id number] [id number]
[2025-06-03 13:41] LABS: Troponin 5 2HR 14.44 ng/L (0-10)
[2025-06-03 13:43] VITALS: BP 160/100; PULSE 55; O2SAT 95
[2025-06-03 13:43] LABS: Troponin 5 2HR Delta -1.56 ABS# (0-10)
[2025-06-03 14:13] VITALS: BP 181/107; PULSE 77; O2SAT 98
== END 2025-06-03 14:20 | disposition home or self-care (01) ==
PROVIDERS: Emergency Medicine; Emergency Provider Family Medicine; PCP Family Medicine
DX: R07.89 Other chest pain (principal); I10 Essential (primary) hypertension
CPT/HCPCS: 36415; 71045; 80053; 83880; 84484; 85025; 93005; 96374; 99285; J2060